=== PATIENT | male | born 1980 | race Caucasian/White ===

== ENCOUNTER 2023-12-21 13:41 | Emergency (ER) | payer OTHER ==
[~2023-12-21] VITALS: Ht 190.5 cm; Wt 83.9 kg
[2023-12-21 14:13] VITALS: BP 142/100; TEMP 97.9
[2023-12-21] MEDS ORDERED: POLY10DR OP (14:29)
[2023-12-21 14:32] VITALS: O2SAT 99
[2023-12-22] MEDS ORDERED: POLY10DR OP (14:47)
== END 2023-12-21 14:33 | disposition home or self-care (01) ==
LOC: ER 13:45
DX: H10.9 Unspecified conjunctivitis (principal)

== ENCOUNTER 2023-12-22 14:30 | Emergency (ER) | payer OTHER ==
[~2023-12-22] VITALS: Ht 188 cm; Wt 83.9 kg
[~2023-12-22 14:30] MED LIST: POLY10DR OP
[2023-12-22 14:37] VITALS: BP 133/71; TEMP 98.7; O2SAT 100
[2023-12-22] MEDS ORDERED: POLY10DR OP (14:47)
== END 2023-12-22 14:47 | disposition home or self-care (01) ==
LOC: ER 14:34
DX: H57.13 Ocular pain, bilateral (principal); H57.89 Other specified disorders of eye and adnexa; Z76.0 Encounter for issue of repeat prescription; Z79.899 Other long term (current) drug therapy

== ENCOUNTER 2024-04-05 15:29 | Emergency (ER) | payer OTHER ==
[~2024-04-05] VITALS: Ht 190.5 cm; Wt 90.7 kg
[2024-04-05] MEDS ORDERED: BENZONATATE 100 MG CAPSULE PO ONE (18:33)
[2024-04-05] MEDS: BENZONATATE 100 MG CAPSULE PO PRN (18:35)
[2024-04-05] MEDS ORDERED: BENZ-13 PO (19:02)
[2024-04-05] MEDS ORDERED: ALBU18HF2 INH (19:02)
[2024-04-05 19:27] VITALS: BP 107/76; TEMP 98; O2SAT 99
== END 2024-04-05 19:27 | disposition home or self-care (01) ==
LOC: ER 15:38
DX: R05.9 Cough, unspecified (principal)
CPT/HCPCS: 71045-TC